=== PATIENT | male | born 1945 | race Caucasian/White ===

== ENCOUNTER 2020-04-10 19:44 | Emergency (ER) | payer OTHER ==
[~2020-04-10] VITALS: Ht 177.8 cm; Wt 95.7 kg
--- NOTE | ~2020-04-10 | EMS ---
[address] [address] EMS Patient Care Report Name: NEIL MORFIN Room #: DEP OLINDA Hoffman#: [id number] Admission: 04/10/20 Attend Phys: Discharge: 04/10/20 Date of : 43 Report #: [id number] THIS REPORT FOR: //name// Report Transmitted: 04/11/2020 01:34 EMS Care Summary [facility] MED-ACT Incident [id number] @ 04/10/2020 19:03 Incident Location [address] [place] [address] Patient NEIL MORFIN Male, 75 Years 1945 Patient Address [address] [place] [address] Patient History Hypertension (HTN),Stroke/CVA, Patient Allergies Sulfa, Patient Medications Meloxicam, Citalopram, Losartan, Pravastatin, Amlodipine, Chief Complaint epigastric pain Disposition Transported No Lights/[place] Dispatch Reason Chest Pain (Non-Traumatic) Transported To [facility] Narrative Pt is normally in a wheelchair and 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 Pt can say only three words which are yes, no, and shit. Tonight pt noted that he seemed tired and maybe uncomfortable, she is basing this off of what she can perceive from his facial expressions. then edel the pt [facility] [address] [place] [address] EMS Patient Care Report Name: NEIL MORFIN Room #: [facility]#: [id number] Admission: 04/10/20 Attend Phys: Discharge: 04/10/20 Date of : 43 Report #: [id number] seemed unable to keep himself in his wheelchair. Upon our arrival pt was TOBAR on the floor and in no apparent distress. When asked if he hurt anywhere he would shrug his shoulders. Asked if he could point to where he hurt he would then point to the lower chest/epigastric area. There was no way to qualify the pain and no way of deeper investigation into its origin, timing, radiation. Pt vital signs stable and pt moved to cot and unit without difficulty. Pt had no changes en route and rested comfortably. Initial Vitals @19:20P: 78,SpO2: 97,LA Suspected: false @19:38P: 82,SpO2: 97,LA Suspected: false @19:35P: 73,R: 18,BP: 144/87,Pain: 2/10,GCS: 15,SpO2: 98,Revised Trauma: 12, @19:18P: 80,R: 18,BP: 166/79,Pain: 2/10,GCS: 15,Temp: 97.8F,Glucose: 81,SpO2: 97,Revised Trauma: 12, Assessments @19:14MENTAL:Person Oriented,Time Oriented,Event Oriented,Place Oriented,SKIN:HEENT:Head/Face: Facial Droop,Neck/Airway: No Abnormalities,LUNG SOUNDS:General: No Abnormalities,ABDOMEN:General: No Abnormalities,PELVIS//GI:EXTREMITIES:Right Arm: Paralysis,Right Leg: Paralysis,Left Arm: No Abnormalities,Left Leg: No Abnormalities,PULSE:NEURO:Facial Droop,Abnormal Gait,Slurred Speech,Weakness Right-Sided, Impression Chest Pain / Discomfort Procedures @19:25Surgical Mask on PatientResponse: Unchanged@19:2012-Lead ECG@19:3812-Lead ECG@19:31Saline Lock 0cc (18 ga) Site: Forearm-LeftResponse: UnchangedFailed Timeline 19:02,Call Received 19:02,Psap Call 19:03,Dispatched 19:04,En Route 19:10,On Scene 19:12,At Patient 19:18,BP: 166/79 M,PULSE: 80,RR: 18 R,SPO2: 97 Ox,ETCO2: ,B,PAIN: 2,GCS: 15, 19:20,12-Lead ECG, 19:20,BP: / M,PULSE: 78,RR: R,SPO2: 97 Ox,ETCO2: ,BG: ,PAIN: ,GCS: , 19:23,Depart Scene 19:25,Surgical Mask on Patient,Response: Unchanged 19:31,Saline Lock 0cc 18 ga Site: Forearm-Left,Response: UnchangedFailed, 19:35,BP: 144/87 M,PULSE: 73,RR: 18 R,SPO2: 98 Ox,ETCO2: ,BG: ,PAIN: 2,GCS: 15, [facility] [address] [place] [address] EMS Patient Care Report Name: NAVJOTNEIL Room #: [facility] OLINDA Hoffman#: [id number] Admission: 04/10/20 Attend Phys: Discharge: 04/10/20 Date of : 43 Report #: [id number] 19:38,12-Lead ECG, 19:38,BP: / M,PULSE: 82,RR: R,SPO2: 97 Ox,ETCO2: ,BG: ,PAIN: ,GCS: , 19:40,At Destination 20:10,Call Closed Disclaimer v1.1 Copyright 2020 [employer] This EMS Care Summary contains data elements from the applicable legal record (which may be displayed differently). It is designed to provide pertinent information for the following purposes: continuity of care, clinical quality, and state data reporting. The complete legal record is available to ED staff and administrators of the receiving hospital in [facility]'s Patient Tracker. All data is provided "as is."
[~2020-04-10 19:44] MED LIST: ACCUNEB SO1.25 MG/1 INH; ACETAMINOP160 MG/12 PER TUBE; ACETAMINOPHEN325 M1 PER TUBE; ACID CONTROL20 MG PER TUBE; AMANTADINE50 MG/5 ML PER TUBE; AMLODIPINE BESYL5 M1 PER TUBE; APAP500 PER TUBE; ARTIFICIAL TEA1 EACH OP; ARTIFICIAL TEAR15 M1 OPHTHALMIC; CELEBREX 200 M200 M1 PER TUBE; CLONIDINE0.1 PO; CLOTRIMAZOLE 1%15 G1 TOP; DIFLUCAN100 MG PER TUBE; DIOVAN 80 MG TA80 M1 PER TUBE; DOCUSATE S100 MG/10 PER TUBE; DUONEB 2.5-0.5 M3 ML INH; ENALAPRILA1.25 MG/M1 IV; FENTANYL 1100 MCG/HR IV; HYDRALAZINE 5050 MG PER TUBE; KEFLEX500 M1 PO; KEPPRA 500 MG500 M1 PO; LEXAPRO 10 MG T10 M1 PER TUBE; LIORESAL 10 MG10 MG PER TUBE; LISINOPRIL10 MG PO; LISINOPRIL20 MG PER TUBE; MELADOX3 MG PO; MELATONIN3 MG PO; METOPROLOL TART25 MG PER TUBE; MIRALAX17 GM PO; MOBIC15 MG PO; MOM PO; NORVASC10 MG PER TUBE; PERIDEX15 ML SWISH&SPIT; TEARS NATURALE1 EACH OPHTHALMIC; TOPROL XL25 MG PO; TRAMADOL 50 MG50 MG PER TUBE; TRIAMCINOLONE A80 G2 TOP; [UNRECOGNIZED DRUG - OTHER] PER TUBE
[2020-04-10 20:13] LABS: ABSOLUTE NEUTROPHILS 11.8 thou/uL (1.4-8.2); BASOPHILS 0.5 % (0.0-2.0); EOSINOPHILS 3.8 % (0.0-3.0); HEMATOCRIT 49.8 % (42.0-52.0); HEMOGLOBIN 16.6 gm/dL (14.0-18.0); LYMPHOCYTES 13.3 % (24.0-44.0); MCH 32.1 pg (26.0-34.0); MCHC 33.3 g/dL (28.0-37.0); MCV 96.5 fL (80.0-100.0); MONOCYTES 6.7 % (1.0-8.0); PLATELET COUNT 207 thou/uL (150-400); POLYS 75.7 % (36.0-66.0); RBC 5.16 mil/uL (4.50-6.00); RDW 13.6 % (10.5-14.5); WBC 15.7 thou/uL (4.0-11.0)
[2020-04-10 20:18] LABS: URINE BILIRUBIN NEGATIVE (Negative); URINE BLOOD NEGATIVE (Negative); URINE CLARITY CLEAR; URINE COLOR YELLOW; URINE GLUCOSE-RANDOM* NEGATIVE (Negative); URINE KETONES NEGATIVE (Negative); URINE LEUKOCYTES-REFLEX NEGATIVE (Negative); URINE NITRITE-REFLEX NEGATIVE (Negative); URINE PROTEIN (DIPSTICK) NEGATIVE (Negative); URINE UROBILINOGEN 0.2 E.U./dl (0.2-1.0)
[2020-04-10 21:26] LABS: ALBUMIN 4.3 g/dL (3.4-5.0); ANION GAP 11 mmol/L (7-16); BUN 23 mg/dL (7-18); CALCIUM 9.7 mg/dL (8.5-10.1); CHLORIDE 104 mmol/L (98-107); CO2 26 mmol/L (21-32); GLUCOSE 110 mg/dL (74-106); LIPASE 96 U/L (73-393); MAGNESIUM 2.1 mg/dL (1.8-2.4); POTASSIUM 4.1 mmol/L (3.5-5.1); SGOT 58 U/L (15-37); SGPT 76 U/L (30-65); SODIUM 141 mmol/L (136-145); TOTAL BILIRUBIN 0.9 mg/dL (0.2-1.0); TOTAL PROTEIN 7.7 g/dL (6.4-8.2); TROPONIN-I <0.06 ng/mL (<0.06)
[2020-04-10] MEDS ORDERED: DOXYCYCLINE 10100 MG PO (21:57)
[2020-04-10 23:24] VITALS: BP 131/74
--- NOTE | 2020-04-11 07:14 | EKG ---
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
== END 2020-04-10 23:45 | disposition home or self-care (01) ==
LOC: ER 19:44
PROVIDERS: Emergency Medicine
DX: J18.9 Pneumonia, unspecified organism (principal); R47.01 Aphasia; Z79.899 Other long term (current) drug therapy; Z88.2 Allergy status to sulfonamides; Z88.8 Allergy status to other drugs, medicaments and biological substances

== ENCOUNTER 2021-03-29 09:32 | Emergency (ER) | payer OTHER ==
[~2021-03-29] VITALS: Ht 180.3 cm; Wt 90.7 kg
--- NOTE | ~2021-03-29 | EMS ---
[facility] [address] [place] [address] EMS Patient Care Report Name: NEIL MORFIN Room #: DEP OLINDA Hoffman#: [id number] Admission: 03/29/21 Attend Phys: Discharge: 03/29/21 Date of : 43 Report #: [id number] THIS REPORT FOR: //name// Report Transmitted: 04/25/2021 16:19 EMS Care Summary [facility] MED-ACT Incident [id number] @ 03/29/2021 08:52 Incident Location [address] [place] [address] Patient NEIL MORFIN Male, 76 Years 1945 Patient Address [address] [place] [address] Patient History Hypertension (HTN),Stroke/CVA,Anxiety, Patient Allergies Sulfur allergy, Patient Medications Citalopram, Levetiracetam, Topiramate, Amlodipine, Losartan, Metoprolol, Meloxicam, Pravastatin, Chief Complaint Agitation and weakness. Disposition Transported No Lights/[place] Dispatch Reason Unconscious/Fainting Transported To [facility] Narrative CC- Agitation and weakness. Hx- Family reports that pt woke up this morning and while she was trying to get [facility] [address] [place] [address] EMS Patient Care Report Name: NEIL MORFIN Room #: DEP [facility]#: [id number] Admission: 03/29/21 Attend Phys: Discharge: 03/29/21 Date of : 43 Report #: [id number] him dressed he seemed as though he could not hold his own leg up so she could put his sock on. reports that pt is very agitated this morning and that is not like him at all. reports that the pt had a CVA in 2013 and has right sided deficit with some sever speech impairment. reports that pt is only able to say yes or no and that is not always accurate of what he is trying to say. reports that pt is acting normally except for the increased agitation. reports that pt is to be transported to [facility] for evaluation in the ER. A- Arrive on scene to find pt sitting upright in his wheel chair in no apparent distress. GCS normal for pt. When the blood pressure cuff was applied the pt was very agitated and started to swing at responders with his left arm. Pts right arm is contractured from the previous CVA. Pt is assisted to the cot with a carry where he seemed to calm down and BP cuff was able to be applied without issue. Pt is moved to the ambulance and transport begins. D- Upon arrival to [facility] pt was taken inside via the cot and moved laterally to the hospital bed. Pt care report and transfer of care given to nursing staff at [facility]. Initial Vitals @09:20P: 84,BP: 138/84,SpO2: 94, @09:25P: 81,BP: 122/82,SpO2: 96, @09:29P: 79,BP: 128/79,SpO2: 96, @09:13P: 89,R: 16,BP: 141/70,Pain: 0/10,GCS: 14,Temp: 98.1F,Glucose: 107,SpO2: 96,Revised Trauma: 12, Impression Behavioral/psychiatric episode Timeline 08:50,Call Received 08:50,Psap Call 08:52,Dispatched 08:53,En Route 08:58,On Scene 08:59,At Patient 09:13,BP: 141/70 M,PULSE: 89,RR: 16 R,SPO2: 96 Ox,ETCO2: ,B,PAIN: 0,GCS: 14, 09:15,Depart Scene 09:20,BP: 138/84 M,PULSE: 84,RR: R,SPO2: 94 Ox,ETCO2: ,BG: ,PAIN: ,GCS: , 09:25,BP: 122/82 M,PULSE: 81,RR: R,SPO2: 96 Ox,ETCO2: ,BG: ,PAIN: ,GCS: , 09:29,At Destination 09:29,BP: 128/79 M,PULSE: 79,RR: R,SPO2: 96 Ox,ETCO2: ,BG: ,PAIN: ,GCS: , [facility] [address] [place] [address] EMS Patient Care Report Name: NELI MORFIN Room #: [facility] Yasmin#: [id number] Admission: 03/29/21 Attend Phys: Discharge: 03/29/21 Date of : 43 Report #: [id number] 09:44,Call Closed Disclaimer v1.1 Copyright 2021 [employer] This EMS Care Summary contains data elements from the applicable legal record (which may be displayed differently). It is designed to provide pertinent information for the following purposes: continuity of care, clinical quality, and state data reporting. The complete legal record is available to ED staff and administrators of the receiving hospital in [employer]'s Patient Tracker. All data is provided "as is."
--- NOTE | ~2021-03-29 | EMS ---
[facility] [address] [place] [address] EMS Patient Care Report Name: NEIL MORFIN Room #: [facility] [id number] Admission: Attend Phys: Discharge: Date of : 43 Report #: [id number] THIS REPORT FOR: //name// Report Transmitted: 03/29/2021 09:20 EMS Care Summary [facility] MED-ACT Incident [id number] @ 03/29/2021 08:52 Incident Location [address] [place] [address] Patient NEIL MORFIN Male, 76 Years 1945 Patient Address [address] [place] [address] Patient History Hypertension (HTN),Stroke/CVA,Anxiety, Patient Allergies Sulfur allergy, Patient Medications Citalopram, Levetiracetam, Topiramate, Amlodipine, Losartan, Metoprolol, Meloxicam, Pravastatin, Chief Complaint Agitation and weakness. Disposition Transported No Lights/[place] Dispatch Reason Unconscious/Fainting Transported To [facility] Narrative CC- Agitation and weakness. Hx- Family reports that pt woke up this morning and while she was trying to get [facility] [address] [place] [address] EMS Patient Care Report Name: NEIL MORFIN Room #: [facility].#: [id number] Admission: Attend Phys: Discharge: Date of : 43 Report #: [id number] him dressed he seemed as though he could not hold his own leg up so she could put his sock on. reports that pt is very agitated this morning and that is not like him at all. reports that the pt had a CVA in 2013 and has right sided deficit with some sever speech impairment. reports that pt is only able to say yes or no and that is not always accurate of what he is trying to say. reports that pt is acting normally except for the increased agitation. reports that pt is to be transported to [facility] for evaluation in the ER. A- Arrive on scene to find pt sitting upright in his wheel chair in no apparent distress. GCS normal for pt. When the blood pressure cuff was applied the pt was very agitated and started to swing at responders with his left arm. Pts right arm is contractured from the previous CVA. Pt is assisted to the cot with a carry where he seemed to calm down and BP cuff was able to be applied without issue. Pt is moved to the ambulance and transport begins. D- Upon arrival to [facility] pt was taken inside via the cot and moved laterally to the hospital bed. Pt care report and transfer of care given to nursing staff at [facility]. Initial Vitals @09:20P: 84,BP: 138/84,SpO2: 94, @09:25P: 81,BP: 122/82,SpO2: 96, @09:29P: 79,BP: 128/79,SpO2: 96, @09:13P: 89,R: 16,BP: 141/70,Pain: 0/10,GCS: 14,Temp: 98.1F,Glucose: 107,SpO2: 96,Revised Trauma: 12, Impression Behavioral/psychiatric episode Timeline 08:50,Call Received 08:50,Psap Call 08:52,Dispatched 08:53,En Route 08:58,On Scene 08:59,At Patient 09:13,BP: 141/70 M,PULSE: 89,RR: 16 R,SPO2: 96 Ox,ETCO2: ,B,PAIN: 0,GCS: 14, 09:15,Depart Scene 09:20,BP: 138/84 M,PULSE: 84,RR: R,SPO2: 94 Ox,ETCO2: ,BG: ,PAIN: ,GCS: , 09:25,BP: 122/82 M,PULSE: 81,RR: R,SPO2: 96 Ox,ETCO2: ,BG: ,PAIN: ,GCS: , 09:29,At Destination 09:29,BP: 128/79 M,PULSE: 79,RR: R,SPO2: 96 Ox,ETCO2: ,BG: ,PAIN: ,GCS: , [address] [address] EMS Patient Care Report Name: NEIL MORFIN Room #: [facility].#: [id number] Admission: Attend Phys: Discharge: Date of : 43 Report #: [id number] 09:44,Call Closed Disclaimer v1.1 Copyright 2020 [employer] This EMS Care Summary contains data elements from the applicable legal record (which may be displayed differently). It is designed to provide pertinent information for the following purposes: continuity of care, clinical quality, and state data reporting. The complete legal record is available to ED staff and administrators of the receiving hospital in [facility]'s Patient Tracker. All data is provided "as is."
[~2021-03-29 09:32] MED LIST changes: +DOXYCYCLINE 10100 MG PO
[2021-03-29 10:09] LABS: ABSOLUTE NEUTROPHILS 6.1 thou/uL (1.4-8.2); BASOPHILS 2.1 % (0.0-2.0); EOSINOPHILS 6.6 % (0.0-3.0); HEMATOCRIT 44.9 % (42.0-52.0); HEMOGLOBIN 15.4 gm/dL (14.0-18.0); LYMPHOCYTES 19.5 % (24.0-44.0); MCHC 34.3 g/dL (28.0-37.0); MCV 96.3 fL (80.0-100.0); PLATELET COUNT 207 thou/uL (150-400); POLYS 63.8 % (36.0-66.0); RBC 4.67 mil/uL (4.50-6.00); RDW 13.5 % (10.5-14.5); WBC 9.6 thou/uL (4.0-11.0)
[2021-03-29 10:32] LABS: CALCIUM 9.1 mg/dL (8.5-10.1); CREATININE 1.2 mg/dL (0.7-1.3)
[2021-03-29 10:37] LABS: ALBUMIN 3.8 g/dL (3.4-5.0); MAGNESIUM 1.9 mg/dL (1.8-2.4); TOTAL BILIRUBIN 0.4 mg/dL (0.2-1.0); TOTAL PROTEIN 7.4 g/dL (6.4-8.2)
[2021-03-29 10:48] LABS: POTASSIUM 4.5 mmol/L (3.5-5.1)
[2021-03-29 12:35] LABS: URINE BILIRUBIN NEGATIVE (Negative); URINE BLOOD NEGATIVE (Negative); URINE CLARITY CLEAR; URINE COLOR YELLOW; URINE GLUCOSE-RANDOM* NEGATIVE (Negative); URINE KETONES NEGATIVE (Negative); URINE LEUKOCYTES-REFLEX NEGATIVE (Negative); URINE NITRITE-REFLEX NEGATIVE (Negative); URINE PROTEIN (DIPSTICK) NEGATIVE (Negative); URINE SPECIFIC GRAVITY 1.015 (1.005-1.035); URINE UROBILINOGEN 0.2 E.U./dl (0.2-1.0)
--- NOTE | 2021-03-29 14:55 | EKG ---
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
[2021-03-29 15:20] VITALS: BP 131/67
== END 2021-03-29 15:26 | disposition home or self-care (01) ==
LOC: ER 09:32
PROVIDERS: Emergency Medicine
DX: G45.9 Transient cerebral ischemic attack, unspecified (principal); Z20.822 Contact with and (suspected) exposure to COVID-19; R41.0 Disorientation, unspecified; Z88.2 Allergy status to sulfonamides; Z88.8 Allergy status to other drugs, medicaments and biological substances; Z79.899 Other long term (current) drug therapy